=== PATIENT | male | born 1970 | race Caucasian/White ===

== ENCOUNTER 2023-07-07 14:04 | Emergency (ER) | payer OTHER, BC ==
[2023-07-07] MEDS ORDERED: CEFAZOLIN SODIUM 2 GM/20 ML SYR IV ONE (14:15)
[2023-07-07] MEDS ORDERED: HYDROmorphone HCL 1 MG/ML SYR IV PRN ×2 (14:15→14:45)
[2023-07-07] MEDS ORDERED: ondansetron HCL 4 MG/2 ML VIAL ONE (14:19)
[2023-07-07 14:25] LABS: HEMATOCRIT 46.3 % (35.0-50.0); HEMOGLOBIN 15.5 g/dL (12.0-18.0); MCH 31.7 (27-36); MCHC 33.6 g/dl (30-36); MCV 94.4 fl (81-99); PLATELET COUNT 264 K/uL (140-440); RDW 12.9 (10.5-15.0)
[2023-07-07] MEDS ORDERED: ondansetron HCL 4 MG/2 ML VIAL IV ONE (14:30)
[2023-07-07 14:43] LABS: BANDS, MANUAL DIFF 3; BASOPHILS, MANUAL DIFF 1; LYMPHOCYTES, MANUAL DIFF 7; MONOCYTES, MANUAL DIFF 12; NEUTROPHILS, MANUAL DIFF 77
[2023-07-07] MEDS ORDERED: KETAMINE HCL 500 MG/5 ML MDV ONE ×2 (14:55→17:02)
[2023-07-07] MEDS ORDERED: KETAMINE in NS 50 MG/5 ML SYR IV ONE ×2 (15:00→17:00)
[2023-07-07 15:12] LABS: ALBUMIN 3.3 g/dL (3.4-5.0); ALBUMIN/GLOBULIN RATIO 1.14 (1.1-2.4); ALCOHOL, MEDICAL <3 ng/dL (<3); ALKALINE PHOSPHATASE 61 U/L (46-116); ALT (SGPT) 21 U/L (14-59); ANION GAP 11.4 (7-21); AST (SGOT) 26 U/L (15-37); BILIRUBIN, TOTAL 0.4 ng/dL (0.2-1.0); BUN/CREATININE RATIO 17.35 (6.0-28.6); CALCIUM 8.8 mg/dL (8.5-10.1); CARBON DIOXIDE 29 mmol/L (21-32); CHLORIDE 103 mmol/L (98-107); CREATININE, SERUM 1.21 mg/dL (0.70-1.30); GLOMERULAR FILTRATION RATE,EST 71 mL/min (>60); POTASSIUM 3.4 mmol/L (3.5-5.1); PROTEIN, TOTAL 6.2 g/dL (6.4-8.2); UREA NITROGEN 21 mg/dL (7-18)
[2023-07-07 15:40] LABS: ABO O; ANTIBODY SCREEN NEGATIVE; RH POSITIVE
[2023-07-07 17:26] LABS: INFLUENZA B NAA NEGATIVE (NEGATIVE); RESPIRATORY SYNCYTIAL VIR NAA NEGATIVE (NEGATIVE)
--- NOTE | 2023-07-07 22:32 | EKG ---
[facility] [address] [place] [address] Signed Normal sinus rhythm Normal ECG No previous ECGs available Confirmed by Jose Miguel Kumari MD () on 07/07/2023 10:32:25 PM Electronically Signed By: JOSE MIGUEL KUMARI MD 07/07/232231 PATIENT NAME: JASSI MAX Electrocardiogram DATE OF : 66 PHYSICIAN: JOSE MIGUEL KUMARI MD REPORT #: [id number] REPORT IS CONFIDENTIAL AND NOT TO BE RELEASED WITHOUT AUTHORIZATION
== END 2023-07-07 18:06 | disposition short-term general hospital (02) ==
LOC: ED 14:04
PROVIDERS: Emergency Medicine
DX: S82.252A Displaced comminuted fracture of shaft of left tibia, initial encounter for closed fracture (principal); S82.452A Displaced comminuted fracture of shaft of left fibula, initial encounter for closed fracture; S82.52XA Displaced fracture of medial malleolus of left tibia, initial encounter for closed fracture; S92.212A Displaced fracture of cuboid bone of left foot, initial encounter for closed fracture; S01.21XA Laceration without foreign body of nose, initial encounter; V69.9XXA Occupant (driver) (passenger) of heavy transport vehicle injured in unspecified traffic accident, initial encounter; I10 Essential (primary) hypertension; F17.220 Nicotine dependence, chewing tobacco, uncomplicated
CPT/HCPCS: 70450; 71045; 71260; 72125; 72170; 73560; 73590; 73600; 73610; 73700; 74177; 80053; 83690; 85025; 86850; 86900; 86901; 87502; 93005; 93010; G0480; J0690; J1170; J2405; J3490; Q9967; U0002